=== PATIENT | male | born 1950 | race African-American/Black ===

== ENCOUNTER 2016-07-25 11:02 | Emergency (ER) | payer OTHER ==
[~2016-07-25] VITALS: Ht 162.6 cm; Wt 66.6 kg
[~2016-07-25 11:02] MED LIST: NOHOMEMEDS
[2016-07-25 13:15] LABS: HEMATOCRIT 26.4 % (38.0-50.0); MCH 18.2 PG (29.0-34.0); MCHC 28.8 G/DL (30.0-36.0); MCV 63.3 FL (86-99); MEAN PLAT.VOLUME 10.2 uM^3 (9.0-12.4); PLATELET COUNT 258 K/uL (156-360); RBC DIS.WIDTH-CV 20.4 % (11.8-14.6); RBC DIS.WIDTH-SD 45.4 % (39-53); RED BLOOD COUNT 4.17 M/uL (4.00-5.50); WHITE BLOOD COUNT 5.8 K/uL (4.1-10.2)
[2016-07-25 13:24] LABS: CHLORIDE 109 mEq/L (99-109); SODIUM 140 mEq/L (136-147)
[2016-07-25 13:25] LABS: GLUCOSE 93 mg/dL (70-99)
[2016-07-25 13:27] LABS: ANION GAP 9 MEQ/L (2-14)
[2016-07-25 13:29] LABS: GFR ESTIMATE (CALCULATED) > 59 mL/min/
[2016-07-25 13:30] LABS: UREA NITROGEN (BUN) 8 mg/dL (9-23)
[2016-07-25 15:22] VITALS: BP 138/76
[2016-07-25] MEDS ORDERED: SIMVASTATIN20 MG PO (15:29)
[2016-07-25] MEDS ORDERED: LISINOPRIL40 MG PO (15:29)
[2016-07-25] MEDS ORDERED: AMLODIPINE BESY10 MG PO (15:29)
[2016-07-25] MEDS ORDERED: LO-DOSE ASPIRIN81 M2 PO (15:30)
[2016-07-25 15:41] VITALS: BP 130/78
[2016-07-25 16:27] VITALS: BP 129/78
[2016-07-25 17:31] VITALS: BP 137/80
[2016-07-25 17:55] VITALS: BP 146/85
[2016-07-25 18:15] VITALS: BP 146/75
== END 2016-07-25 18:15 | disposition home or self-care (01) ==
LOC: EME 11:02
PROC: 30233N1 Transfusion of Nonautologous Red Blood Cells into Peripheral Vein, Percutaneous Approach (ICD-10-PCS; principal; 2016-07-25)
DX: D50.9 Iron deficiency anemia, unspecified (principal); I10 Essential (primary) hypertension
CPT/HCPCS: 80048; 85027; 86850; 86900; 86901; 86920; 86999; 99281; 99285; P9016

== ENCOUNTER → 2016-11-04 | Outpatient (CLI) | payer OTHER ==
[~2016-11-04] VITALS: Ht 162.6 cm; Wt 63.5 kg
[~2016-11-04] MED LIST changes: +AMLODIPINE BESY10 MG PO; +ASPIRIN81 M2 PO; +IRON325 MG PO; +LISINOPRIL40 MG PO; +LO-DOSE ASPIRIN81 M2 PO; +NORVASC10 MG PO; +PROTONIX40 MG PO; +SIMVASTATIN20 MG PO; +ZESTRIL40 MG PO; +ZOCOR20 MG PO
== END | disposition home or self-care (01) ==
LOC: AMB 14:00
PROC: 0DB68ZX Excision of Stomach, Via Natural or Artificial Opening Endoscopic, Diagnostic (ICD-10-PCS; principal; 2016-11-04)
DX: D50.9 Iron deficiency anemia, unspecified (principal); K29.70 Gastritis, unspecified, without bleeding; E78.00 Pure hypercholesterolemia, unspecified; I10 Essential (primary) hypertension; Z87.891 Personal history of nicotine dependence
CPT/HCPCS: 88305; 88342 TC; 93005; J2250; J3010